=== PATIENT | male | born 1965 | race Caucasian/White ===

== ENCOUNTER 2016-07-17 07:21 | Emergency (ER) | payer BC, OTHER ==
[2016-07-17] MEDS ORDERED: IBUPROFEN 200 MG TAB PO ONE (07:56)
--- NOTE | 2016-07-17 08:08 | UCPHY ---
H & P Time Seen by Provider: 07/17/16 07:36 Patient Type: Established HPI/ROS: This patient reports a one-week history of symptoms comprised of nasal congestion and right ear pain with a 2 day history of sore throat. He reports now that the sore throat is the most painful and is associated with odynophagia. He had difficulty sleeping last night due to the pain. He also has associated fevers. He reports the right ear pain as moderate with no exacerbating or alleviating factors. He has associated diminished hearing on the right side. ROS: Constitutional: No high fevers or chills. HEENT: No drainage from his ear. He still tolerating p.o. intake pulmonary: He does have a cough occasionally productive of sputum. No pleuritic pain. No dyspnea. Cardiovascular: No complaints 7 point ROS is otherwise negative. Past Medical/Surgical History: Borderline hypertension his baseline blood pressure runs 140s over 85. He reports having more significant hypertension in the past with episodes of pain or acute illness. Smoking Status: Never smoked Physical Exam: Physical Exam Vital signs are normal. General: No acute distress HEENT: Nose: No sinus tenderness to percussion. Yellow discharge bilaterally. Ears: Right external canals clear right TM is dull and erythematous with an effusion. Left external canal and TM are clear oropharynx : Mild erythema in the posterior pharynx. No dysphonia. Eyes: Pupils equal and react to light. Extraocular motions are intact. Lungs: Clear to auscultation bilaterally with no rales, rhonchi or wheeze. No respiratory distress. Cardiac: Regular rate and rhythm with no murmur gallop or rub. Skin: No rash or pallor. Neuro: Alert and oriented with no sensorimotor deficits appreciated. Initial differential diagnosis: Viral pharyngitis, strep pharyngitis, otitis media, Constitutional: Initial Vital Signs Temperature (C) 37.6 C 07/17/16 07:45 Heart Rate 80 07/17/16 07:45 Respiratory Rate 16 07/17/16 07:45 Blood Pressure 166/119 H 07/17/16 07:45 O2 Sat (%) 96 07/17/16 07:45 O2 Delivery Mode Room Air Allergies/Adverse Reactions: No Known Allergies Allergy (Unverified 08/14/15 10:41) Home Medications: Medication Instructions Recorded Amoxicillin Trihydrate [Amoxil] 500 mg PO TID #30 cap 07/17/16 Hydrocodone/APAP 5/325 [[place] 1 - 2 tab PO Q4PRN PRN #15 tab 07/17/16 5/325 (*)] Medical Decision Making ED Course/Re-evaluation: A manual blood pressure recheck is 180/100. Rapid strep is negative. I counseled patient regarding his otitis media and also has hypertension. He has no evidence of end-organ injury or other complications of his hypertension at this time and I suspect that is elevated a bit due to his pain. He is treated with ibuprofen 600 mg p. o. and will follow up with Dr. Devlin is primary care physician - Data Points Laboratory Results: 07/17/16 07/17/16 Unknown 07:40 Group A Strep Screen NEGATIVE (NEGATIVE) Group A Strep DNA Pending Medications Given: Discontinued Medications Ibuprofen (Motrin) 600 mg PO EDNOW ONE Stop: 07/17/16 07:57 Last Admin: 07/17/16 08:03 Dose: 600 mg Departure - Departure Disposition: Home, Routine, Self-Care Clinical Impression: Otitis media Qualifiers: Otitis media type: unspecified Laterality: right Chronicity: unspecified Qualified Code(s): H66.91 - Otitis media, unspecified, right ear Pharyngitis Qualifiers: Pharyngitis/tonsillitis etiology: unspecified etiology Qualified Code(s): J02.9 - Acute pharyngitis, unspecified Hypertension Qualifiers: Hypertension type: essential hypertension Qualified Code(s): I10 - Essential ( primary) hypertension Condition: Good Instructions: Otitis Media (ED), Hypertension (ED) Additional Instructions: Diagnosis: 1. Otitis media 2. Pharyngitis 3. Hypertension Plan: Ibuprofen-600 mg per 6 hours as needed for pain Amoxil antibiotic In the exclusion-rinse gargle spit for pain as needed Vicodin in addition if needed. No driving, alcohol or come Vicodin. Rest today Recheck your blood pressure in a few days when you are feeling better and follow up with primary care physician for recheck. Return for any significant worsening despite treatment plan Referrals: Chele Devlin MD [Primary Care Provider] - As per Instructions Stand Alone Forms: Work Excuse Prescriptions: Amoxicillin Trihydrate [Amoxil] 500 mg PO TID #30 cap Hydrocodone/APAP 5/325 [[place] 5/325 (*)] 1 - 2 tab PO Q4PRN PRN #15 tab PRN Reason: Pain - PQRS PQRS Measurement: NA
[2016-07-17 08:30] VITALS: BP 166/78; PULSE 78; RESP 18; TEMP 98; O2SAT 97
== END 2016-07-17 08:17 | disposition home or self-care (01) ==
LOC: CED 07:21
DX: H66.91 Otitis media, unspecified, right ear (principal); J02.9 Acute pharyngitis, unspecified; I10 Essential (primary) hypertension
CPT/HCPCS: 87880-PO; 99214-PO